=== PATIENT | female | born 1970 | race Caucasian/White ===

== ENCOUNTER 2022-04-03 07:49 | Inpatient (IN) | payer OTHER ==
[~2022-04-03] VITALS: Ht 162.6 cm; Wt 59.0 kg
[~2022-04-03 07:49] MED LIST: ANTIVERT 25MG T25 MG PO; IBUPROFEN800 MG PO; LEVAQUIN500 MG PO; NORCO 5-325 TA1 EACH PO; PENVEE K 500 M500 MG PO
[2022-04-03 08:30] LABS: HEMOGLOBIN 12.9 gm/dl (12.3-15.3); RED BLOOD COUNT 4.08 M/UL (4.00-5.10); WHITE BLOOD COUNT 12.4 K/UL (4.5-11.0)
[2022-04-03 09:07] LABS: BUN/CREATININE RATIO 32 (0-10)
--- NOTE | 2022-04-03 15:59 | NUR ---
PT NOTED TO BE VOMITING AND HAS SOME BLOOD TINGE TO IT. NOTIFIED .
[2022-04-03 17:13] LABS: ESCHERICHIA COLI Not Detected (Negative); HAEMOPHILUS INFLUENZAE Not Detected (Negative); KLEBSIELLA OXYTOCA Not Detected (Negative); KLEBSIELLA PNEUMONIAE Not Detected (Negative); KPC-CARBAPENEM-RESISTANCE GENE Not Detected (Negative); PROTEUS Not Detected (Negative); PSEUDOMONAS AERUGINOSA Not Detected (Negative); SERRATIA MARCESANS Not Detected (Negative); STAPHYLOCOCCUS Not Detected (Negative); STAPHYLOCOCCUS AUREUS Not Detected (Negative); STREP AGALACTIAE (GROUP B) Not Detected (Negative); STREP PYOGENES (GROUP A) Not Detected (Negative); vanA/B (VANCOMYCIN RESIST GENE Not Detected (Negative)
[2022-04-03 17:14] LABS: CANDIDA ALBICANS Not Detected (Negative); CANDIDA KRUSEI Not Detected (Negative); CANDIDA TROPICALIS Not Detected (Negative)
--- NOTE | 2022-04-03 17:49 | NUR ---
NOTIFIED DR MAK OF PTS POSITIVE BLOOD CULTURES. NO NEW ORDERS AT THIS TIME.
[2022-04-03 18:39] LABS: STREPTOCOCCUS DETECTED (Negative)
[2022-04-04 05:24] LABS: WHITE BLOOD COUNT 9.4 K/UL (4.5-11.0)
[2022-04-04 05:42] LABS: BUN/CREATININE RATIO 25 (0-10)
[2022-04-04 05:43] LABS: HEMOGLOBIN 10.6 gm/dl (12.3-15.3); RED BLOOD COUNT 3.41 M/UL (4.00-5.10)
[2022-04-05 06:42] LABS: HEMOGLOBIN 10.3 gm/dl (12.3-15.3); RED BLOOD COUNT 3.29 M/UL (4.00-5.10); WHITE BLOOD COUNT 8.1 K/UL (4.5-11.0)
[2022-04-05 08:23] LABS: BUN/CREATININE RATIO 18 (0-10)
[2022-04-06 01:47] LABS: HEMOGLOBIN 11.7 gm/dl (12.3-15.3)
[2022-04-06 01:52] LABS: RED BLOOD COUNT 3.78 M/UL (4.00-5.10)
[2022-04-06 02:09] LABS: BUN/CREATININE RATIO 13 (0-10)
[2022-04-06] MEDS ORDERED: CHRONULAC20 GM/30 M PO (11:07)
[2022-04-06] MEDS ORDERED: PROTONIX 40 MG40 M1 PO (11:07)
[2022-04-06] MEDS ORDERED: LEVOFLOXACIN750 MG PO (11:07)
[2022-04-06] MEDS ORDERED: DOCUSATE SODIU100 MG PO (11:07)
== END 2022-04-06 15:50 | disposition home or self-care (01) | DRG 871 ==
LOC: ER1 07:49 → CDU 09:42 → PROG CARE 09:42 → M/S 04-06 04:44
PROVIDERS: Emergency Medicine; Internal Medicine; ADMIT Internal Medicine
PROC: 3E043XZ Introduction of Vasopressor into Central Vein, Percutaneous Approach (ICD-10-PCS; principal; 2022-04-03)
PROC: 3E03329 Introduction of Other Anti-infective into Peripheral Vein, Percutaneous Approach (ICD-10-PCS; 2022-04-03)
PROC: B24BZZZ Ultrasonography of Heart with Aorta (ICD-10-PCS; 2022-04-04)
DX: A40.3 Sepsis due to Streptococcus pneumoniae (principal); R65.21 Severe sepsis with septic shock; J18.9 Pneumonia, unspecified organism; J96.01 Acute respiratory failure with hypoxia; E87.1 Hypo-osmolality and hyponatremia; Z20.822 Contact with and (suspected) exposure to COVID-19; F17.210 Nicotine dependence, cigarettes, uncomplicated; I08.1 Rheumatic disorders of both mitral and tricuspid valves; M19.011 Primary osteoarthritis, right shoulder; K59.00 Constipation, unspecified; Z85.118 Personal history of other malignant neoplasm of bronchus and lung; Z90.710 Acquired absence of both cervix and uterus; Z90.49 Acquired absence of other specified parts of digestive tract; Z99.81 Dependence on supplemental oxygen
CPT/HCPCS: ECHO; 0240U; 36415; 36600; 71045; 71046; 73030; 73200; 74018; 80053; 80202; 81001; 82550; 82553; 82803; 83036; 83605; 83690; 83880; 84439; 84443; 84484; 84702; 85025; 85027; 85379; 86140; 87040; 87077; 87081; 87150; 87186; 93005; 93306; 93970; 94640; 94664; 94760; 96374; 96375; 96376; 97162; 97530; 99285; J0696; J1650; J2185; J2270; J2405; J2543; J3370; J7070; Q9967